=== PATIENT | female | born 1985 | race Caucasian/White ===

== ENCOUNTER 2019-04-02 11:41 | Emergency (ER) | payer MEDICARE, MEDICAID ==
[~2019-04-02] VITALS: Ht 167.6 cm; Wt 65.9 kg
[2019-04-02] MEDS ORDERED: normal saline 1000ML IV soln IVB ONE (12:25)
--- NOTE | 2019-04-02 13:00 | NUR ---
out to ct via wheelchair with automotive production worker
[2019-04-02 13:09] LABS: URINE HCG NEGATIVE (NEG)
[2019-04-02 13:12] LABS: BASOPHILS # (AUTO) 0.1 X10'3 (0-0.2); BASOPHILS % (AUTO) 0.6 % (0-1); EOSINOPHILS # (AUTO) 0.1 X10'3 (0-0.9); EOSINOPHILS % (AUTO) 0.9 % (0-6); HEMOGLOBIN 14.6 g/dl (12.0-16.0); LYMPHOCYTES # (AUTO) 2.8 X10'3 (1.1-4.8); LYMPHOCYTES % (AUTO) 24.9 % (21-51); MEAN CORPUSCULAR HEMOGLOBIN 32.2 PG (27.0-31.0); MEAN CORPUSCULAR HGB CONC 33.9 g/dL (33.0-36.5); MEAN CORPUSCULAR VOLUME 94.9 FL (78-98); MEAN PLATELET VOLUME 6.4 FL (7.4-10.4); MONOCYTES # (AUTO) 0.6 X10'3 (0-0.9); NEUTROPHILS # (AUTO) 7.8 X10'3 (1.8-7.7); NEUTROPHILS % (AUTO) 68.6 % (42-75); PLATELET COUNT 326 X10'3 (140-440); RED BLOOD COUNT 4.53 X10'6 (4.20-5.60); WHITE BLOOD COUNT 11.4 X10'3 (4.5-11.0)
--- NOTE | 2019-04-02 13:12 | NUR ---
pt returns from ct
[2019-04-02 13:15] LABS: CLARITY,URINE CLEAR (Clear); COLOR,URINE YELLOW (Yellow); GLUCOSE, URINE NEGATIVE (Neg); KETONES,URINE NEGATIVE (Neg); LEUKOCYTE ESTERASE ,URINE NEGATIVE (Neg); NITRITES, URINE NEGATIVE (Neg); OCCULT BLOOD,URINE NEGATIVE (Neg); PROTEIN,URINE NEGATIVE (Neg); UROBILINOGEN,URINE 0.2 E.U/dL (0.2-1.0)
[2019-04-02 13:18] LABS: UA COLLECTION TYPE CLN CATCH MIDSTREAM
[2019-04-02 13:19] LABS: ALANINE AMINOTRANSFERASE 24 U/L (12-78); ALBUMIN/GLOBULIN RATIO 1.1 (1.1-1.5); ALKALINE PHOSPHATASE 62 IU/L (46-116); ANION GAP 11 (8-16); ASPARTATE AMINO TRANSFERASE 15 U/L (10-37); BILIRUBIN,TOTAL 0.4 MG/DL (0.1-1.0); BLOOD UREA NITROGEN 7 MG/DL (7-18); CALCIUM 8.9 MG/DL (8.5-10.1); CHLORIDE 99 MMOL/L (99-107); ETHANOL 0.013 GM/DL (0.0-0.010); GLUCOSE 88 MG/DL (70-104); MAGNESIUM 1.5 MG/DL (1.5-2.4); SODIUM 138 MMOL/L (135-145); TOTAL CARBON DIOXIDE 28.1 MMOL/L (24-32); TOTAL PROTEIN 7.6 G/DL (6.4-8.2); eGFR > 90 ML/MIN
[2019-04-02 13:20] LABS: URINE AMPHETAMINE SCREEN NEGATIVE (Neg); URINE BARBITUATE SCREEN NEGATIVE (Neg); URINE BENZODIAZEPINES SCREEN NEGATIVE (Neg); URINE CANNABINOID SCREEN NEGATIVE (Neg); URINE COCAINE SCREEN NEGATIVE (Neg); URINE METHADONE SCREEN NEGATIVE (Neg); URINE OPIATE SCREEN NEGATIVE (Neg); URINE PHENCYCLIDINE SCREEN NEGATIVE (Neg)
[2019-04-02 13:25] VITALS: BP 120/86
[2019-04-02 13:26] LABS: ACETAMINOPHEN < 2.0 UG/ML (10-30)
[2019-04-02] MEDS ORDERED: potassium Cl 20 mEq SR tablet PO ONE (13:35)
[2019-04-02 13:43] LABS: INR 1.1 INR; PARTIAL THROMBOPLASTIN TIME 25 SECONDS (22-32)
== END 2019-04-02 13:58 | disposition home or self-care (01) ==
LOC: ER 11:42
DX: E87.6 Hypokalemia (principal); R53.81 Other malaise; G40.909 Epilepsy, unspecified, not intractable, without status epilepticus; Z88.8 Allergy status to other drugs, medicaments and biological substances; Z90.49 Acquired absence of other specified parts of digestive tract
CPT/HCPCS: 36415; 70450; 80053; 80305; 80320; 80329; 81003; 81025; 83735; 85025; 85610; 85730; 93005; 99284; J7030

== ENCOUNTER 2019-04-28 19:35 | Emergency (ER) | payer MEDICARE, MEDICAID ==
[~2019-04-28] VITALS: Ht 165.1 cm; Wt 68.3 kg
[2019-04-28 19:39] VITALS: BP 116/78
--- NOTE | 2019-04-28 19:40 | NUR ---
Pt placed in RAP WR with boyfriend while waiting for eval room in ER.
[2019-04-28] MEDS ORDERED: quetiapine 100mg tablet PO STA (21:08)
[2019-04-28] MEDS ORDERED: LORazepam 1 MG tablet PO ONE (21:10)
== END 2019-04-28 21:30 | disposition home or self-care (01) ==
LOC: ER 19:35
DX: F10.129 Alcohol abuse with intoxication, unspecified (principal); R56.9 Unspecified convulsions; Z90.49 Acquired absence of other specified parts of digestive tract; Z88.8 Allergy status to other drugs, medicaments and biological substances; Y90.9 Presence of alcohol in blood, level not specified
CPT/HCPCS: 99283

== ENCOUNTER 2020-07-13 20:54 | Emergency (ER) | payer MEDICARE, MEDICAID ==
[~2020-07-13] VITALS: Ht 165.1 cm; Wt 145.0 kg
[2020-07-13 21:18] VITALS: BP 128/82
--- NOTE | 2020-07-13 21:50 | NUR ---
Pt displayed seizure like activity for approx 1 min. Afterward, pt was able to state her name and answer questions about medications
--- NOTE | 2020-07-13 22:31 | NUR ---
Pt was seen walking out of ER stating that her boyfriend was outside with her medications and she was planning on walking outside to get them. She was informed that she was not able to leave the ER with an IV in place and was told her boyfriend could leave her meds with registration brought to her. Pt returned to her room. Pt was then seen leaving the ER with her belongings and IV had been removed by the patient.
== END 2020-07-13 22:37 | disposition left against medical advice (07) ==
LOC: ER 20:54
DX: R56.9 Unspecified convulsions (principal); Z53.21 Procedure and treatment not carried out due to patient leaving prior to being seen by health care provider

== ENCOUNTER 2021-07-18 21:06 | Emergency (ER) | payer MEDICARE, MEDICAID ==
[~2021-07-18] VITALS: Ht 170.2 cm; Wt 81.0 kg
[2021-07-18] MEDS ORDERED: normal saline 1000ml 1,000 ML IV ONE (21:55)
[2021-07-18] MEDS ORDERED: ondansetron/PF 4mg/2ml inj IV ONE (21:55)
[2021-07-18] MEDS ORDERED: acetaminophen 325mg tablet PO ONE (22:00)
[2021-07-18 23:11] LABS: BASOPHILS % (AUTO) 0.2 % (0-1); EOSINOPHILS % (AUTO) 0.2 % (0-6); HEMATOCRIT 41.2 % (35.0-45.0); LYMPHOCYTES # (AUTO) 1.9 X10'3 (1.1-4.8); LYMPHOCYTES % (AUTO) 36.4 % (21-51); MEAN CORPUSCULAR HEMOGLOBIN 31.5 PG (27.0-31.0); MEAN CORPUSCULAR VOLUME 92.7 FL (78-98); MEAN PLATELET VOLUME 7.5 FL (7.4-10.4); MONOCYTES # (AUTO) 0.6 X10'3 (0-0.9); MONOCYTES % (AUTO) 10.4 % (2-12); NEUTROPHILS # (AUTO) 2.8 X10'3 (1.8-7.7); NEUTROPHILS % (AUTO) 52.8 % (42-75); PLATELET COUNT 203 X10'3 (140-440); RED BLOOD COUNT 4.45 X10'6 (4.20-5.60); RED CELL DISTRIBUTION WIDTH 12.7 % (11.5-14.5); WHITE BLOOD COUNT 5.3 X10'3 (4.5-11.0)
[2021-07-18 23:15] LABS: ALANINE AMINOTRANSFERASE 33 U/L (12-78); ALBUMIN 4.2 G/DL (3.4-5.0); ALBUMIN/GLOBULIN RATIO 1.2 (1.1-1.5); ALKALINE PHOSPHATASE 63 IU/L (46-116); ANION GAP 9 (8-16); ASPARTATE AMINO TRANSFERASE 17 U/L (10-37); BILIRUBIN,TOTAL 0.3 MG/DL (0.1-1.0); BLOOD UREA NITROGEN 5 MG/DL (7-18); CALCIUM 8.8 MG/DL (8.5-10.1); CHLORIDE 103 MMOL/L (99-107); CREATININE 0.83 MG/DL (0.40-0.90); GLUCOSE 104 MG/DL (70-104); POTASSIUM 3.2 MMOL/L (3.5-5.1); SODIUM 141 MMOL/L (135-145); TOTAL CARBON DIOXIDE 29.1 MMOL/L (24-32); TOTAL PROTEIN 7.7 G/DL (6.4-8.2); eGFR 77 ML/MIN
[2021-07-18] MEDS ORDERED: ONDA4TAB12 PO (23:56)
[2021-07-19] MEDS ORDERED: POTASSIUM BICARB 20meq eff tab 20 MEQ TABLET.EFF PO ONE
[2021-07-19 00:12] VITALS: BP 97/79
--- NOTE | 2021-07-19 00:21 | NUR ---
patient given dc instructions and rx and acknowledged understanding. patient dc home with .
== END 2021-07-19 00:21 | disposition home or self-care (01) ==
LOC: ER 21:07
DX: U07.1 COVID-19 (principal); R05 Cough; R50.9 Fever, unspecified; R11.0 Nausea; Z86.69 Personal history of other diseases of the nervous system and sense organs; Z85.9 Personal history of malignant neoplasm, unspecified; Z72.89 Other problems related to lifestyle; Z98.890 Other specified postprocedural states; Z88.8 Allergy status to other drugs, medicaments and biological substances; Z79.899 Other long term (current) drug therapy
CPT/HCPCS: 36415; 71045; 80053; 85025; 87635; 96374; 99284; C9803; J2405; J7030

== ENCOUNTER 2021-12-05 10:18 | Outpatient (CLI) | payer MEDICARE, MEDICAID ==
[~2021-12-05 10:18] MED LIST: ONDA4TAB12 PO
== END 2021-12-05 23:59 | disposition home or self-care (01) ==
LOC: RAD 10:18
PROVIDERS: ATTEND Psychiatry & Neurology Neurology
DX: R94.01 Abnormal electroencephalogram [EEG] (principal); G40.009 Localization-related (focal) (partial) idiopathic epilepsy and epileptic syndromes with seizures of localized onset, not intractable, without status epilepticus
CPT/HCPCS: 95816

== ENCOUNTER 2021-12-20 02:25 | Emergency (ER) | payer MEDICARE, MEDICAID ==
[~2021-12-20] VITALS: Ht 165.1 cm; Wt 63.6 kg
[2021-12-20 03:34] LABS: URINE HCG NEGATIVE (NEG)
[2021-12-20 03:43] LABS: CLARITY,URINE CLEAR (Clear); COLOR,URINE YELLOW (Yellow); GLUCOSE, URINE NEGATIVE (Neg); KETONES,URINE NEGATIVE (Neg); LEUKOCYTE ESTERASE ,URINE NEGATIVE (Neg); NITRITES, URINE NEGATIVE (Neg); OCCULT BLOOD,URINE NEGATIVE (Neg); PROTEIN,URINE NEGATIVE (Neg); UROBILINOGEN,URINE 0.2 E.U/dL (0.2-1.0)
[2021-12-20 03:48] LABS: UA COLLECTION TYPE STRAIGHT CATH
[2021-12-20] MEDS ORDERED: normal saline 1000ML IV soln IVB ONE ×2 (03:50→07:10)
[2021-12-20] MEDS ORDERED: pantoprazole 40MG/D5 100ML BAG 100 ML IV ONE (03:50)
[2021-12-20] MEDS ORDERED: ondansetron/PF 4mg/2ml inj IV ONE ×4 (03:50→14:05)
[2021-12-20] MEDS ORDERED: pantoprazole 40MG/NS 100ML BAG 100 ML IV ONE (03:51)
[2021-12-20] MEDS: morphine 2 MG/ML inj. syringe IV PRN ×2 (04:58→05:23)
[2021-12-20 05:04] LABS: BASOPHILS % (AUTO) 0.3 % (0-1); EOSINOPHILS % (AUTO) 0.1 % (0-6); HEMATOCRIT 32.7 % (35.0-45.0); HEMOGLOBIN 11.4 g/dl (12.0-16.0); LYMPHOCYTES # (AUTO) 1.2 X10'3 (1.1-4.8); LYMPHOCYTES % (AUTO) 7.9 % (21-51); MEAN CORPUSCULAR HEMOGLOBIN 31.5 PG (27.0-31.0); MEAN CORPUSCULAR HGB CONC 34.9 g/dL (33.0-36.5); MEAN CORPUSCULAR VOLUME 90.4 FL (78-98); MEAN PLATELET VOLUME 7.1 FL (7.4-10.4); MONOCYTES # (AUTO) 0.9 X10'3 (0-0.9); NEUTROPHILS # (AUTO) 13.5 X10'3 (1.8-7.7); NEUTROPHILS % (AUTO) 85.7 % (42-75); PLATELET COUNT 268 X10'3 (140-440); RED BLOOD COUNT 3.61 X10'6 (4.20-5.60); RED CELL DISTRIBUTION WIDTH 12.8 % (11.5-14.5); WHITE BLOOD COUNT 15.7 X10'3 (4.5-11.0)
[2021-12-20 05:20] LABS: ALANINE AMINOTRANSFERASE 23 U/L (12-78); ALBUMIN 3.7 G/DL (3.4-5.0); ALBUMIN/GLOBULIN RATIO 1.1 (1.1-1.5); ALKALINE PHOSPHATASE 47 IU/L (46-116); ANION GAP 5 (8-16); ASPARTATE AMINO TRANSFERASE 20 U/L (10-37); BILIRUBIN,TOTAL 0.5 MG/DL (0.1-1.0); BLOOD UREA NITROGEN 14 MG/DL (7-18); BUN/CREATININE RATIO 17.7 (6.6-38.0); CALCIUM 8.7 MG/DL (8.5-10.1); CHLORIDE 105 MMOL/L (99-107); CREATININE 0.79 MG/DL (0.40-0.90); GLUCOSE 114 MG/DL (70-104); LIPASE 129 U/L (73-393); POTASSIUM 3.7 MMOL/L (3.5-5.1); SODIUM 137 MMOL/L (135-145); TOTAL CARBON DIOXIDE 26.8 MMOL/L (24-32); eGFR 82 ML/MIN
[2021-12-20] MEDS ORDERED: iohexol 300mg/ml 100ml inj. ONE (05:32)
--- NOTE | 2021-12-20 06:59 | NUR ---
EDMD at bedside.
[2021-12-20] MEDS ORDERED: cefazolin/dext.iso 2gm/100ml 100 ML IV STA (07:07)
[2021-12-20] MEDS ORDERED: HYDROmorphone 1 mg/ml syringe IV ONE ×4 (07:10→14:05)
[2021-12-20] MEDS ORDERED: ceFAZolin 1000mg inj IV ONE (07:10)
[2021-12-20] MEDS ORDERED: cefazolin/dext.iso 2gm/50ml 50 ML IV STA (07:10)
--- NOTE | 2021-12-20 07:30 | NUR ---
Pt in bed, complaining of 8/10 abdominal pain, worse with movement.
[2021-12-20] MEDS ORDERED: ketamine 10mg/ml 20ml inj 20 MG in normal saline 100ml IV soln 98 ML IV ONE (08:05)
--- NOTE | 2021-12-20 09:30 | NUR ---
Pt's abdominal pain returning. Shallow respirations s/t abdominal pain with deep inspiration.
[2021-12-20] MEDS ORDERED: normal saline 1000ml 1,000 ML IV SCH (14:05)
[2021-12-20] MEDS ORDERED: normal saline 1000ml 1,000 ML IVB ONE (14:05)
--- NOTE | 2021-12-20 14:15 | NUR ---
Pt awake and alert, c/o returning abdominal pain.
[2021-12-20 14:56] LABS: BASOPHILS % (AUTO) 0.4 % (0-1); EOSINOPHILS % (AUTO) 0.2 % (0-6); HEMOGLOBIN 10.6 g/dl (12.0-16.0); LYMPHOCYTES # (AUTO) 1.8 X10'3 (1.1-4.8); LYMPHOCYTES % (AUTO) 17.1 % (21-51); MEAN CORPUSCULAR HGB CONC 35.2 g/dL (33.0-36.5); MEAN CORPUSCULAR VOLUME 90.9 FL (78-98); MONOCYTES # (AUTO) 0.7 X10'3 (0-0.9); MONOCYTES % (AUTO) 7.3 % (2-12); NEUTROPHILS # (AUTO) 7.7 X10'3 (1.8-7.7); PLATELET COUNT 250 X10'3 (140-440); WHITE BLOOD COUNT 10.3 X10'3 (4.5-11.0)
--- NOTE | 2021-12-20 16:06 | NUR ---
Called report to JUNIOR Stanford at [facility].
--- NOTE | 2021-12-20 16:27 | NUR ---
Transport arrived for pt. Report given.
[2021-12-20 16:41] VITALS: BP 123/84
== END 2021-12-20 16:50 | disposition short-term general hospital (02) ==
LOC: ER 02:25
DX: S36.899A Unspecified injury of other intra-abdominal organs, initial encounter (principal); N83.201 Unspecified ovarian cyst, right side; R10.31 Right lower quadrant pain; Z86.69 Personal history of other diseases of the nervous system and sense organs; Z85.9 Personal history of malignant neoplasm, unspecified; Z98.890 Other specified postprocedural states; Z72.89 Other problems related to lifestyle; Z88.8 Allergy status to other drugs, medicaments and biological substances; Z79.899 Other long term (current) drug therapy; X58.XXXA Exposure to other specified factors, initial encounter; Y93.89 Activity, other specified; Y92.89 Other specified places as the place of occurrence of the external cause; Y99.8 Other external cause status
CPT/HCPCS: 36415; 74177; 76856; 80053; 81003; 81025; 83690; 85025; 87635; 93976; 96361; 96365; 96375; 96376; 99291; C9113; C9803; J0690; J1170; J2270; J2405; J3490; J7030; Q9967

== ENCOUNTER 2023-03-27 12:49 | Emergency (ER) | payer MEDICARE, MEDICAID ==
[~2023-03-27] VITALS: Ht 165.1 cm; Wt 70.0 kg
[2023-03-27 13:46] LABS: BASOPHILS # (AUTO) 0.1 X10'3 (0-0.2); BASOPHILS % (AUTO) 0.9 % (0-1); EOSINOPHILS # (AUTO) 0.4 X10'3 (0-0.9); EOSINOPHILS % (AUTO) 4.4 % (0-6); HEMATOCRIT 39.9 % (35.0-45.0); HEMOGLOBIN 13.6 g/dl (12.0-16.0); LYMPHOCYTES # (AUTO) 3.2 X10'3 (1.1-4.8); LYMPHOCYTES % (AUTO) 35.8 % (21-51); MEAN CORPUSCULAR HEMOGLOBIN 31.7 PG (27.0-31.0); MEAN CORPUSCULAR VOLUME 93.1 FL (78-98); MEAN PLATELET VOLUME 6.8 FL (7.4-10.4); MONOCYTES # (AUTO) 0.5 X10'3 (0-0.9); MONOCYTES % (AUTO) 5.7 % (2-12); NEUTROPHILS # (AUTO) 4.7 X10'3 (1.8-7.7); NEUTROPHILS % (AUTO) 53.2 % (42-75); PLATELET COUNT 302 X10'3 (140-440); RED BLOOD COUNT 4.29 X10'6 (4.20-5.60); RED CELL DISTRIBUTION WIDTH 12.2 % (11.5-14.5); WHITE BLOOD COUNT 8.8 X10'3 (4.5-11.0)
[2023-03-27 13:54] LABS: ALANINE AMINOTRANSFERASE 30 U/L (12-78); ALBUMIN 3.7 G/DL (3.4-5.0); ALKALINE PHOSPHATASE 46 IU/L (46-116); ANION GAP 8 (8-16); ASPARTATE AMINO TRANSFERASE 17 U/L (10-37); BILIRUBIN,TOTAL 0.3 MG/DL (0.1-1.0); BLOOD UREA NITROGEN 10 MG/DL (7-18); BUN/CREATININE RATIO 14.3 (10.0-20.0); CALCIUM 9.2 MG/DL (8.5-10.1); CHLORIDE 104 MMOL/L (99-107); GLUCOSE 94 MG/DL (70-104); LIPASE 176 U/L (73-393); SODIUM 138 MMOL/L (135-145); TOTAL PROTEIN 7.3 G/DL (6.4-8.2); eGFR > 90 ML/MIN
[2023-03-27 13:55] VITALS: BP 108/75
[2023-03-27 14:06] LABS: CLARITY,URINE CLEAR (Clear); COLOR,URINE YELLOW (Yellow); GLUCOSE, URINE NEGATIVE (Neg); KETONES,URINE NEGATIVE (Neg); LEUKOCYTE ESTERASE ,URINE NEGATIVE (Neg); NITRITES, URINE NEGATIVE (Neg); OCCULT BLOOD,URINE NEGATIVE (Neg); PROTEIN,URINE NEGATIVE (Neg); UROBILINOGEN,URINE 0.2 E.U/dL (0.2-1.0)
[2023-03-27 14:07] LABS: URINE HCG NEGATIVE (NEG)
[2023-03-27 14:09] LABS: UA COLLECTION TYPE CLN CATCH MIDSTREAM
== END 2023-03-27 17:33 | disposition home or self-care (01) ==
LOC: ER 12:49
DX: N80.9 Endometriosis, unspecified (principal); Z43.3 Encounter for attention to colostomy; R10.31 Right lower quadrant pain; Z88.8 Allergy status to other drugs, medicaments and biological substances
CPT/HCPCS: 36415; 76830; 76856; 80053; 81003; 81025; 83690; 85025; 93976; 99284

== ENCOUNTER 2025-09-20 11:04 | Outpatient (CLI) | payer MEDICARE, MEDICAID ==
[~2025-09-20 11:04] MED LIST changes: +ONDA-243 PO; -ONDA4TAB12 PO
--- NOTE | 2025-09-21 10:35 | CONSULTATION ---
DATE OF CONSULTATION: 09/20/2025 DICTATING PHYSICIAN: Diamond Perales M.S., [facility]-WHEEL ALIGNMENT TECHNICIAN MODIFIED BARIUM SWALLOW STUDY REPORT REFERRING PHYSICIAN: CHANG Cavazos. HISTORY OF PRESENT ILLNESS: The patient is a 40-year-old female and consents to this evaluation. History was obtained from the patient and medical records. The patient reports symptoms of dysphagia including feeling like she is not doing a full swallow. She reports that it is difficult for her to initiate a swallow and she does not feel that her structures involved in swallowing move entirely throughout the swallowing process. She notes that it is difficult to swallow solid food items and she has to utilize a great deal of liquid to help push them through the esophagus. This has been occurring for at least the past 2 months. She has been experiencing episodes of inflammation and pain for the last 4 months. The patient has a familial history of adenomatous polyposis. She is scheduled for an endoscopy at [place] in November. She is also followed by a neurologist and has fibromyalgia. CURRENT DIET: In terms of caffeine, the patient has 6 cans of soda a day. She does not utilize tobacco products or drink alcohol. She consumes chocolate once weekly. In terms of dairy products, she has cheese twice weekly and is unsure if her protein shake is dairy-based. A typical breakfast consists of a protein shake with bread. She does not snack in the morning. Lunch may be salad, sandwich, or soup. She snacks in the afternoon on flores and keto chips. Dinner is consumed at 5:30 and may be meat with vegetables. She has dessert shortly after of muffins and cupcakes. She goes to bed at 10 p.m. She reports hypersensitivity to carbohydrates. MEDICATIONS: B12 injection twice monthly, Estradiol patch twice weekly, ibuprofen p.r.n., lorazepam once weekly, doxycycline once daily orally, albuterol inhaler p.r.n., rizatriptan p.r.n., Zofran p.r.n., Tylenol p.r.n., Toradol shot every 3 months. PARAMETERS: The patient is seated in a lateral 90-degree view and administered the usual protocol of thin and nectar-thick liquids, puree and solid consistencies, as well as self-regulated boluses of thin liquids from a cup. RESULTS: In the oral stage of the swallow, lingual strength is mild to moderately reduced. She utilizes a lingual pumping motion in order to propel the bolus from the anterior to the posterior oral cavity. Following the initial swallow boluses, there was a mild to moderate oral residue. In the pharyngeal stage of the swallow, tongue base retraction is mild to moderately reduced. Swallow initiation is delayed between the vallecula and the piriform sinuses for thin liquid boluses. The late swallow initiation can be caused by decreased sensation to cranial nerve 9, which triggers at the level of the faucial arches. Anterior movement of the posterior pharyngeal wall was observed. Elevation of the hyothyroid complex was accomplished with mildly reduced epiglottic inversion and full movement anteriorly and superiorly of the hyoid. There is a mild pharyngeal residue at the level of the vallecula following the initial swallow of boluses. PES opening is within functional limits. In terms of airway safety, the patient demonstrated penetration of the 1 mL, 5 mL and self-regulated bolus of thin liquid from a cup as well as penetration with a cookie. ANTERIOR-POSTERIOR VIEW: In the AP plane, the bolus was split symmetrically between the piriform sinuses and there was no proximal movement noted. 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 The patient also demonstrated penetration for thin liquids and solid consistency. DIAGNOSES: R13.12, dysphagia, oropharyngeal phase; K21.9, gastroesophageal reflux disease. PATIENT EDUCATION: Immediately following modified barium swallow study, the patient was able to view the results. The normal anatomy of the swallowing mechanism was revealed. She was able to see how the current status of the swallowing mechanism decreases her ability to swallow normally. The patient was educated on a recommendation for speech therapy to strengthen the muscles involved in swallowing and agreed to participate at this time. She was also educated on the effortful swallow exercise for her to complete until she was contacted to schedule her swallowing therapy. RECOMMENDATIONS: It is recommended that the patient receive swallowing therapy 1 time weekly for 12 weeks to improve the strength of the swallowing musculature to ensure airway safety protection to prevent aspiration. LONG-TERM GOALS: The patient will maintain adequate hydration/nutrition with optimum safety and efficiency of swallow function on p.o. intake without overt signs and symptoms of aspiration for the highest possible diet level. PROGNOSIS: Prognosis for the patient is good in terms of patient motivation and willingness to learn. FUNCTIONAL ORAL INTAKE: The FOIS was administered to establish and document a change in the functional eating activities of this patient over time. This is a 7-point scale with 1 indicating no oral intake and totally tube-dependent and 7 indicating total oral intake with no restrictions. This patient received a 7, which indicates total oral intake with no restrictions. G-CODE: [id number]. During this examination, 3.18 minutes of fluoroscopy time and 16.11 CAK mGy were utilized. Thank you very much for asking me to participate in the care of this kind patient. Should you have any questions regarding this evaluation or recommendations, please do not hesitate to contact me at [phone]. Diamond Perales M.S., [facility]-WHEEL ALIGNMENT TECHNICIAN TID: [id number] RECEIPT: [id number] ESTIVEN GO
== END 2025-09-20 23:59 | disposition home or self-care (01) ==
LOC: RAD 11:04
DX: K21.9 Gastro-esophageal reflux disease without esophagitis (principal); R13.14 Dysphagia, pharyngoesophageal phase; M79.7 Fibromyalgia; R13.12 Dysphagia, oropharyngeal phase; Z79.1 Long term (current) use of non-steroidal anti-inflammatories (NSAID); Z79.899 Other long term (current) drug therapy
CPT/HCPCS: 74230